=== PATIENT | male | born 1935 | race Caucasian/White ===

== ENCOUNTER 2018-02-19 10:50 | Inpatient (IN) | payer OTHER ==
[~2018-02-19 10:50] MED LIST: CEFAZOLIN 1 GM INJ; HETASTARCH 6% NACL 500 ML BAG; ROCURONIUM 50 MG INJ
[2018-02-19] MEDS ORDERED: oxyCODONE 5 MG TAB PO (12:30)
[2018-02-19] MEDS ORDERED: MAGNESIUM HYDROXIDE 30ML CUP PO (12:30)
[2018-02-19] MEDS ORDERED: NALOXONE (0.4 MG/ML) INJ IV ×2 (12:30→17:00)
[2018-02-19] MEDS ORDERED: SENNA/DOCUSATE NA (8.6MG/50MG) TAB PO (12:30)
[2018-02-19] MEDS: ONDANSETRON 4 MG INJ IV ×2 (12:30→18:30)
[2018-02-19] MEDS ORDERED: DIPHENHYDRAMINE 50 MG INJ IV ×3 (12:30→17:00)
[2018-02-19] MEDS ORDERED: NA PHOSPHATE/BIPHOS 133 ML ENEMA PR (12:30)
[2018-02-19] MEDS ORDERED: BISACODYL 10 MG SUPP PR (12:30)
[2018-02-19] MEDS: CEFAZOLIN 2 GM/50 ML (PMX) 50 ML (FOR WT < 120 KG) IVPB (12:30)
[2018-02-19] MEDS ORDERED: PROPOFOL 100 ML (13:09)
[2018-02-19] MEDS ORDERED: ROPIVACAINE 0.2% 20 ML VIAL ×2 (13:09→15:13)
[2018-02-19] MEDS ORDERED: MIDAZOLAM 1 MG/ML 2 ML INJ (13:09)
[2018-02-19] MEDS ORDERED: FENTAnyl 50 MCG/ML VIAL ×2 (13:09→15:52)
[2018-02-19] MEDS ORDERED: BUPIVACAINE 0.75%/DEXT (SPINAL) 2 ML INJ (13:12)
[2018-02-19] MEDS ORDERED: ROPIVACAINE 0.5 % 30 ML VIAL (13:55)
[2018-02-19] MEDS ORDERED: PHENYLephrine (100 MCG/ML) 5ML SYG ×2 (14:03→14:42)
[2018-02-19] MEDS: TRANEXAMIC ACID 1,000 MG in D5W 100 ML AT INCISION X1 IVPB (14:21)
[2018-02-19] MEDS: POLYMYXIN B 500000 UNIT INJ (14:37)
[2018-02-19] MEDS: BACITRACIN 50000 UNITS INJ (14:37)
[2018-02-19] MEDS ORDERED: ACETAMINOPHEN 1000MG/100ML IV 100 ML (14:49)
[2018-02-19] MEDS ORDERED: ONDANSETRON 4 MG INJ (14:49)
[2018-02-19] MEDS ORDERED: DEXAMETHASONE 4 MG/ML 1 ML INJ (14:49)
[2018-02-19] MEDS ORDERED: METOCLOPRAMIDE 10 MG INJ (14:49)
[2018-02-19] MEDS: POLYMYXIN/BACITRACIN 1L IRRIG (15:12)
[2018-02-19] MEDS: TRANEXAMIC ACID 1,000 MG in D5W 100 ML AT CLOSURE X1 IVPB (15:55)
[2018-02-19] MEDS ORDERED: GLYCOPYRROLATE 0.4 MG INJ (16:32)
[2018-02-19] MEDS ORDERED: NEOSTIGMINE 3 MG/3 ML SYRINGE (16:32)
[2018-02-19] MEDS ORDERED: morphine 2 MG INJ IV ×2 (17:00)
[2018-02-19] MEDS ORDERED: ALBUMIN HUMAN 5% 250 ML IV (17:00)
[2018-02-19] MEDS ORDERED: hydrALAzine 20 MG INJ IV (17:00)
[2018-02-19] MEDS ORDERED: EPHEDrine SULFATE 50 MG/5 ML SYG IV (17:00)
[2018-02-19] MEDS ORDERED: ACETAMINOPHEN 500 MG TAB PO (17:00)
[2018-02-19] MEDS ORDERED: MEPERIDINE 25 MG INJ IV (17:00)
[2018-02-19] MEDS ORDERED: LABETALOL HCL 20MG INJ IV (17:00)
[2018-02-19] MEDS ORDERED: METOCLOPRAMIDE 10 MG INJ IV (17:00)
[2018-02-19] MEDS ORDERED: HYDROCODONE/APAP (5/325) TAB PO (17:00)
[2018-02-19] MEDS ORDERED: FENTAnyl 50 MCG/ML VIAL IV ×3 (17:00)
[2018-02-19] MEDS ORDERED: NALBUPHINE HCL (10 MG/1 ML) INJ IV (17:00)
[2018-02-19] MEDS ORDERED: HYDROmorphONE 1 MG/5 ML IV SYRINGE IV ×3 (17:00)
[2018-02-19] MEDS ORDERED: HYDROmorphONE 0.5 MG/0.5 ML SYG IV ×2 (17:00)
[2018-02-19] MEDS ORDERED: ONDANSETRON 4 MG INJ IV ×2 (17:00)
[2018-02-19] MEDS ORDERED: OXYCODONE/ACETAMINOPHEN (5/325) TAB PO (17:00)
[2018-02-19] MEDS: DOCUSATE SODIUM 100 MG CAP PO (18:08)
[2018-02-19] MEDS: ASPIRIN (EC) 325 MG TAB PO (18:09)
[2018-02-19] MEDS: CEFAZOLIN 1 GM/50 ML (PMX) 50 ML IVPB ×2 (19:48→19:50)
[2018-02-19] MEDS: SOD CHLORIDE 0.9% 1,000 ML IV (19:48)
[2018-02-19] MEDS ORDERED: NON-FORMULARY/PATIENT OWN MED (Rosuvastatin Calcium* (Crestor*) 10 MG) PO (21:00)
[2018-02-19] MEDS: GABAPENTIN 100 MG CAP PO (22:01)
[2018-02-19] MEDS: CELECOXIB 100 MG CAP PO (22:01)
[2018-02-19] MEDS: ATORVASTATIN 40 MG TAB PO (22:01)
[2018-02-19] MEDS: CEPASTAT LOZENGE MT (22:33)
[2018-02-20] MEDS: ONDANSETRON 4 MG INJ IV ×2 (00:30→05:57)
[2018-02-20] MEDS: SOD CHLORIDE 0.9% 1,000 ML IV ×2 (00:45→13:15)
[2018-02-20 05:43] LABS: ABNORMAL IP MESSAGE 1; ADD MAN DIFF? NO; BASOPHILS % 0.1 % (0.0-2.0); HEMATOCRIT 31.1 % (42.0-52.0); HEMOGLOBIN 10.8 g/dl (14.0-18.0); LYMPHOCYTES # 0.5 10^3/ul (0.8-2.9); LYMPHOCYTES % 6.6 % (15.0-51.0); MEAN CORPUSCULAR HEMOGLOBIN 31.8 pg (29.0-33.0); MEAN CORPUSCULAR HGB CONC 34.7 g/dl (32.0-37.0); MEAN CORPUSCULAR VOLUME 91.5 fl (82.0-101.0); MEAN PLATELET VOLUME 9.6 fl (7.4-10.4); MONOCYTE # 0.4 10^3/ul (0.3-0.9); NEUTROPHILS % 87.9 % (39.0-77.0); PLATELET COUNT 162 10^3/UL (140-415); POSITIVE DIFF @See below; RED CELL DISTRIBUTION WIDTH 13.2 % (11.5-14.5)
[2018-02-20] MEDS: CEFAZOLIN 1 GM/50 ML (PMX) 50 ML IVPB (05:46)
[2018-02-20 06:08] LABS: ANION GAP 12 (8-16); BLOOD UREA NITROGEN 16 mg/dl (7-20); CARBON DIOXIDE 24 mmol/L (21-31); CHLORIDE 108 mmol/L (97-110); GLUCOSE 152 mg/dl (70-220); POTASSIUM 4.1 mmol/L (3.5-5.1); SODIUM 140 mmol/L (135-144)
[2018-02-20] MEDS: BETHANECHOL 25 MG TAB PO ×2 (06:41→19:23)
[2018-02-20] MEDS: DOCUSATE SODIUM 100 MG CAP PO ×2 (08:50→20:16)
[2018-02-20] MEDS: FERROUS FUMARATE (SR) TAB PO ×2 (08:50→20:17)
[2018-02-20] MEDS: ASPIRIN (EC) 325 MG TAB PO (08:51)
[2018-02-20] MEDS: FISH OIL 1,000 MG CAP PO (08:51)
[2018-02-20] MEDS: CHOLECALCIFEROL 1,000 UNIT TAB PO (08:51)
[2018-02-20] MEDS: FINASTERIDE 5 MG TAB PO (08:51)
[2018-02-20] MEDS: CELECOXIB 100 MG CAP PO ×2 (08:51→20:16)
[2018-02-20] MEDS: MULTIVITAMINS THERAPEUTIC TAB PO (08:51)
[2018-02-20] MEDS: GABAPENTIN 100 MG CAP PO ×2 (08:51→20:17)
[2018-02-20] MEDS: TAMSULOSIN (SR) 0.4 MG CAP PO (08:51)
[2018-02-20] MEDS ORDERED: NON-FORMULARY/PATIENT OWN MED (Omega-3 Fatty Acids/Fish Oil (Fish Oil 1,000 mg Capsule) 1 PO (09:00)
[2018-02-20] MEDS: ATORVASTATIN 40 MG TAB PO (20:16)
[2018-02-21] MEDS: SOD CHLORIDE 0.9% 1,000 ML IV (01:45)
[2018-02-21] MEDS: oxyCODONE 5 MG TAB PO ×3 (04:19→14:37)
[2018-02-21] MEDS: PANTOPRAZOLE (EC) 40 MG TAB PO (05:35)
[2018-02-21 06:05] LABS: ADD MAN DIFF? NO
[2018-02-21 06:09] LABS: BASOPHIL # 0.1 10^3/ul (0.0-0.1); BASOPHILS % 0.7 % (0.0-2.0); EOSINOPHILS # 0.3 10^3/ul (0.0-0.5); EOSINOPHILS % 3.7 % (0.0-7.0); HEMATOCRIT 31.6 % (42.0-52.0); IMMATURE GRANS #M 0.02 10^3/ul; IMMATURE GRANS % (M) 0.2 %; LYMPHOCYTES # 2.1 10^3/ul (0.8-2.9); LYMPHOCYTES % 23.3 % (15.0-51.0); MEAN CORPUSCULAR HEMOGLOBIN 32.8 pg (29.0-33.0); MEAN CORPUSCULAR HGB CONC 34.8 g/dl (32.0-37.0); MEAN CORPUSCULAR VOLUME 94.3 fl (82.0-101.0); MEAN PLATELET VOLUME 10.1 fl (7.4-10.4); MONOCYTE # 0.9 10^3/ul (0.3-0.9); MONOCYTES % 9.9 % (0.0-11.0); NEUTROPHIL # 5.5 10^3/ul (1.6-7.5); NEUTROPHILS % 62.2 % (39.0-77.0); PLATELET COUNT 196 10^3/UL (140-415); RED BLOOD COUNT 3.35 10^6/ul (4.70-6.10); RED CELL DISTRIBUTION WIDTH 13.4 % (11.5-14.5)
[2018-02-21 06:09] LABS: WHITE BLOOD COUNT 8.9 10^3/ul (4.8-10.8)
[2018-02-21 06:41] LABS: ANION GAP 16 (8-16); BLOOD UREA NITROGEN 15 mg/dl (7-20); CALCIUM 8.9 mg/dl (8.4-10.2); CARBON DIOXIDE 24 mmol/L (21-31); CHLORIDE 105 mmol/L (97-110); CREATININE 0.92 mg/dl (0.61-1.24); GLUCOSE 112 mg/dl (70-220); POTASSIUM 3.7 mmol/L (3.5-5.1); SODIUM 141 mmol/L (135-144)
[2018-02-21] MEDS: CHOLECALCIFEROL 1,000 UNIT TAB PO (08:36)
[2018-02-21] MEDS: ASPIRIN (EC) 325 MG TAB PO (08:36)
[2018-02-21] MEDS: FISH OIL 1,000 MG CAP PO (08:36)
[2018-02-21] MEDS: FINASTERIDE 5 MG TAB PO (08:36)
[2018-02-21] MEDS: FERROUS FUMARATE (SR) TAB PO (08:36)
[2018-02-21] MEDS: TAMSULOSIN (SR) 0.4 MG CAP PO (08:36)
[2018-02-21] MEDS: GABAPENTIN 100 MG CAP PO (08:36)
[2018-02-21] MEDS: DOCUSATE SODIUM 100 MG CAP PO (08:36)
[2018-02-21] MEDS: CELECOXIB 100 MG CAP PO (08:36)
[2018-02-21] MEDS: MULTIVITAMINS THERAPEUTIC TAB PO (08:36)
== END 2018-02-21 15:15 | disposition home health service (06) | DRG 468 ==
LOC: REC 10:50 → MS1 18:47
PROC: 0SPC0JZ Removal of Synthetic Substitute from Right Knee Joint, Open Approach (ICD-10-PCS; principal; 2018-02-19 13:16)
PROC: 0SRC0J9 Replacement of Right Knee Joint with Synthetic Substitute, Cemented, Open Approach (ICD-10-PCS; 2018-02-19 13:16)
DX: T84.032A Mechanical loosening of internal right knee prosthetic joint, initial encounter (principal); T84.062A Wear of articular bearing surface of internal prosthetic right knee joint, initial encounter; I25.10 Atherosclerotic heart disease of native coronary artery without angina pectoris; N40.0 Benign prostatic hyperplasia without lower urinary tract symptoms; J32.9 Chronic sinusitis, unspecified; E78.5 Hyperlipidemia, unspecified; G60.9 Hereditary and idiopathic neuropathy, unspecified; E04.2 Nontoxic multinodular goiter; R73.03 Prediabetes; I10 Essential (primary) hypertension; Z96.653 Presence of artificial knee joint, bilateral; Y84.8 Other medical procedures as the cause of abnormal reaction of the patient, or of later complication, without mention of misadventure at the time of the procedure; Y92.019 Unspecified place in single-family (private) house as the place of occurrence of the external cause; Z79.82 Long term (current) use of aspirin; Z95.1 Presence of aortocoronary bypass graft; Z87.891 Personal history of nicotine dependence
CPT/HCPCS: 73560; 80048; 85025; 86850; 86900; 86901; 87070; 87075; 87081; 87086; 88300; 97110; 97116; 97161; 97165; 97166; 97530